=== PATIENT | female | born 2005 | race Caucasian/White ===

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

== ENCOUNTER → 2025-08-14 | Outpatient (RCR) ==
[~2025-08-14] MED LIST changes: +ACET-683 PO; +AMOX500C PO; +COLA100C5 PO; +IBUP600T42 PO
== END ==
LOC: M EMPSKH 07-29 11:08
PROVIDERS: ATTEND Family Medicine
DX: Z20.828 Contact with and (suspected) exposure to other viral communicable diseases (principal)

== ENCOUNTER 2025-08-25 15:12 | Emergency (ER) | payer MEDICAID, OTHER, SELFPAY ==
[~2025-08-25] VITALS: Ht 157.5 cm; Wt 66.0 kg
[~2025-08-25 15:12] MED LIST changes: -AMOX500C PO
[2025-08-25 15:19] VITALS: BP 138/91; TEMP 98.1; O2SAT 97
[2025-08-25] MEDS ORDERED: AMOX500C PO (15:40)
[2025-08-25] MEDS: AMOXICILLIN 500 MG CAP PO ONE (15:45)
== END 2025-08-25 15:47 | disposition home or self-care (01) ==
LOC: M ED 15:12
DX: J02.0 Streptococcal pharyngitis (principal); F17.210 Nicotine dependence, cigarettes, uncomplicated; Z79.2 Long term (current) use of antibiotics